=== PATIENT | male | born 1980 | race Caucasian/White ===

== ENCOUNTER 2016-09-15 13:19 | Emergency (ER) | payer OTHER, MEDICARE, MEDICAID ==
[2016-09-15 13:39] VITALS: RESP 18; O2SAT 99
[2016-09-15 13:54] LABS: BASOPHILS % (AUTO) 1 % (0-3); EOSINOPHILS % (AUTO) 2 % (0-9); HEMATOCRIT 47 % (39-53); MEAN CORPUSCULAR HGB CONC 35.2 gm/dl (32.0-36.0); MEAN CORPUSCULAR VOLUME 87 fL (80-100); MONOCYTES % (AUTO) 6.8 % (0-12); NEUTROPHILS % (AUTO) 53.3 % (37-80)
[2016-09-15 14:07] LABS: ALBUMIN 3.9 gm/dl (3.4-5.0); CALCIUM 8.7 mg/dl (8.5-10.1)
[2016-09-15] MEDS ORDERED: ACETAMINOPHEN 325 MG PO ONE (15:01)
[2016-09-15] MEDS ORDERED: ACETAMINOPHEN 325 MG ONE (15:06)
[2016-09-15 15:28] VITALS: BP 129/79; PULSE 64; TEMP 98
== END 2016-09-15 15:20 | DRG 556 ==
LOC: ED 13:19
DX: M25.552 Pain in left hip (principal); V89.2XXA Person injured in unspecified motor-vehicle accident, traffic, initial encounter
CPT/HCPCS: 36415; 70450; 72125; 80053; 85025; 85610; 99282; 99284; G0390